=== PATIENT | female | born 1965 | race African-American/Black ===

== ENCOUNTER 2017-06-24 07:43 | Emergency (ER) | payer OTHER ==
[~2017-06-24] VITALS: Ht 162.6 cm; Wt 86.2 kg
--- NOTE | ~2017-06-24 | CR63 ---
[facility] A Service of [facility] & [facility] RADIOLOGY TEXT RESULTS PATIENT: CHRISTINA CHOPRA LOCATION: [facility] : 67 UNIT #: [id number] AGE: [address]: Iona Mitchell SEX: F ORDER DR: [id number] [facility] [address] [place], [place] [address] [id number] MR#: [id number] Acc #: [id number] NAME: CHRISTINA CHOPRA : 1965 SEX: F STUDY DATE/TIME: 06/24/2017 10:52 UNIT: [facility] ROOM: STUDY DESCRIPTION: CR Chest 2 View Attending Physician: Iona Mitchell Pa-C Ordering Physician: Iona Mitchell Pa-C Primary Care Physician: No Primary Care Physician MEDICAL IMAGING REPORT This report is preliminary unless electronic signature is present EXAM Chest 2 views 06/24/2017 1052 hours. HISTORY Hypertension, left shoulder pain for [address] 04/06/2008. No prior chest x-ray. FINDINGS Upright PA and lateral views of the chest demonstrate normal heart size with a minimally tortuous aorta. Hilar contours are normal. There are bilateral calcified granulomata in the lungs. There is no acute pulmonary density or pleural effusion. IMPRESSION Benign calcified granulomatous changes. Otherwise normal chest film. There is no pleural effusion or pneumothorax. Dictated by... Kylee Aranda M.D. THIS IS AN ELECTRONICALLY VERIFIED REPORT Kylee Aranda M.D. at 06/24/2017 2:32 PM WILLIAN/jaime TD: 06/24/2017 12:59 JOB #: [id number] MEDICAL IMAGING REPORT Page 1 of 1 COPY
--- NOTE | ~2017-06-24 | EKG ---
PATIENT: CHRISTINA CHOPRA UNIT #: [id number] Ventricular Rate: 74 BPM Atrial Rate: 74 BPM P-R Interval: 150 ms QRS Duration: 90 ms Q-T Interval: 414 ms QTC Calculation(Bezet): 459 ms P Wrens: 16 degrees Calculated T Wrens: -7 degrees Diagnosis Line: Normal sinus rhythm Diagnosis Line: Normal ECG Diagnosis Line: No previous ECGs available Diagnosis Line: Confirmed by KARISHMA PANTOJA MD ([id number]) on Diagnosis Line: 06/24/2017 12:01:58 PM INTERPRETING MD: KIT FONSECA
[2017-06-24 09:33] LABS: BASOPHIL# 0.1 X10e3 (0-0.3); EOSINOPHIL# 0.1 X10e3 (0-0.7); EOSINOPHIL% 1.4 % (0.0-7.0); HEMATOCRIT 43.1 % (35.0-45.0); HEMOGLOBIN 14.4 gm/dL (12.0-16.0); LYMPHOCYTE# 1.7 X10e3 (1.0-3.5); LYMPHOCYTE% 18.1 % (17.0-45.0); MEAN CELL VOLUME 84.5 FL (83-96); MEAN CORPUSCULAR HEMOGLOBIN 28.3 PG (28-34); MEAN CORPUSCULAR HGB CONC 33.5 g/dL (30-36); MEAN PLATELET VOLUME 8.5 FL (6.5-11.5); MONOCYTE# 0.7 X10e3 (0-1.0); MONOCYTE% 7.2 % (3.0-12.0); NEUTROPHIL# 6.9 X10e3 (1.5-7.1); NEUTROPHIL% 72.3 % (40-75); PLATELET COUNT 282 X10e3 (140-420); RED BLOOD COUNT 5.09 X10e (3.90-5.30); RED CELL DISTRIBUTION WIDTH 14.1 % (11.0-15.5); WHITE BLOOD COUNT 9.5 X10e3 (4.0-10.5)
[2017-06-24 09:47] LABS: DIFF IND NO
[2017-06-24 09:54] LABS: ALBUMIN SERUM 4.1 g/dL (3.5-5.0); BILIRUBIN, DIRECT 0.1 mg/dL (0.0-0.2); BILIRUBIN,INDIRECT 0.8 mg/dL (0.0-0.9); BILIRUBIN,TOTAL 0.9 mg/dL (0.2-2.0); BUN/CREATININE RATIO 12.72; CALCIUM SERUM 8.8 mg/dL (8.4-10.2); CREATININE SERUM 1.1 mg/dL (0.6-1.4); GLOM FILT RATE Estimated 67.8 mL/min (>60); POTASSIUM 3.4 mmol/L (3.5-5.1); PROTEIN TOTAL SERUM 7.9 g/dL (6.0-8.3)
[2017-06-24 10:01] LABS: POC - CKMB 1.1 ng/mL (0.0-7.9); POC - TROPONIN <0.05 ng/mL (<=0.05)
[2017-06-24 10:24] LABS: URINE SOURCE CLEAN CATCH
[2017-06-24 10:30] LABS: URINE APPEARANCE CLEAR; URINE BILIRUBIN NEG (NEG); URINE BLOOD TRACE (NEG); URINE COLOR YELLOW; URINE GLUCOSE NEG (NEG); URINE KETONE NEG (NEG); URINE LEUKOCYTE ESTERASE 1+ (NEG); URINE NITRATE NEG (NEG); URINE PROTEIN 1+ (NEG); URINE SPECIFIC GRAVITY 1.012 (1.003-1.035); URINE UROBILINOGEN 0.2 MG/DL (NEG)
[2017-06-24 10:33] LABS: URINE BACTERIA AUWI NEG (NEGATIVE); URINE SQUAMOUS EPITHELIAL CELL OCC /[HPF]
[2017-06-24 10:37] LABS: CULTURE INDICATED? NO
[2017-06-24 11:56] LABS: POC - CKMB <1.0 ng/mL (0.0-7.9); POC - TROPONIN <0.05 ng/mL (<=0.05)
== END 2017-06-24 12:36 | disposition home or self-care (01) ==
LOC: CED 07:43
PROVIDERS: Physician Assistant Medical
DX: I10 Essential (primary) hypertension (principal); R80.9 Proteinuria, unspecified; Z88.5 Allergy status to narcotic agent
CPT/HCPCS: 36415; 71020; 80048; 80076; 81003; 82553; 84484; 85025; 93005; 99284